=== PATIENT | male | born 1980 | race Caucasian/White ===

== ENCOUNTER 2020-07-29 10:24 | Outpatient (CLI) | payer BC, SELFPAY ==
--- NOTE | 2020-07-29 10:46 | EST_ITS ---
Patient Info Name: Luis Patel Age: 40 years : 1980 Gender: Male Ht: 70 in Wt: 217 lbs BSA: 2.23 m2 Exam Date: 07/29/2020 11:11 AM Exam Location: [facility] Stress Patient Status: Outpatient Admit Date: 07/29/2020 Staff Ordering Physician: Marianne Wells Attending Provider: Marianne Wells Exercise Technologist: Radha Hale RDCS Exercise Physician: Lino Farrell DO Exam Type: CA stress test treadmill Study Info Indications R00.2 - Palpitations A treadmill exercise stress test was performed. Summary 1. 1. Negative Hussain exercise stress test for ischemic ST changes by ECG criteria. 2. 2. Good functional capacity, achieving 12 METs of workload. 3. 3. Appropriate HR response to exercise. 4. 4. Appropriate HR recovery at 1 minute post exercise. 5. 5. No imaging with stress testing. 6. 6. Patient informed of the above results. Protocol: Hussain Stress ECG Details Stage: REST Duration (min): 4 min : 48 sec Speed (mph): 0.0 Grade (%): 0 HR (bpm): 88 SBP (mmHg): 130 DBP (mmHg): 74 METS: --- Stage: REST Duration (min): 7 min : 19 sec Speed (mph): 0.0 Grade (%): 0 HR (bpm): 92 SBP (mmHg): 130 DBP (mmHg): 74 METS: --- Stage: STAGE 1 Duration (min): 1 min : 0 sec Speed (mph): 1.7 Grade (%): 10 HR (bpm): 115 SBP (mmHg): 130 DBP (mmHg): 74 METS: --- Stage: STAGE 1 Duration (min): 2 min : 0 sec Speed (mph): 1.7 Grade (%): 10 HR (bpm): 118 SBP (mmHg): 130 DBP (mmHg): 74 METS: --- Stage: STAGE 1 Duration (min): 3 min : 0 sec Speed (mph): 1.7 Grade (%): 10 HR (bpm): 116 SBP (mmHg): 124 DBP (mmHg): 78 METS: --- Stage: STAGE 2 Duration (min): 1 min : 0 sec Speed (mph): 2.5 Grade (%): 12 HR (bpm): 125 SBP (mmHg): 124 DBP (mmHg): 78 METS: --- Stage: STAGE 2 Duration (min): 2 min : 0 sec Speed (mph): 2.5 Grade (%): 12 HR (bpm): 132 SBP (mmHg): 141 DBP (mmHg): 84 METS: --- Stage: STAGE 2 Duration (min): 3 min : 0 sec Speed (mph): 2.5 Grade (%): 12 HR (bpm): 135 SBP (mmHg): 141 DBP (mmHg): 84 METS: --- Stage: STAGE 3 Duration (min): 1 min : 0 sec Speed (mph): 3.4 Grade (%): 14 HR (bpm): 142 SBP (mmHg): 169 DBP (mmHg): 83 METS: --- Stage: STAGE 3 Duration (min): 2 min : 0 sec Speed (mph): 3.4 Grade (%): 14 HR (bpm): 147 SBP (mmHg): 169 DBP (mmHg): 83 METS: --- Stage: STAGE 3 Duration (min): 3 min : 0 sec Speed (mph): 3.4 Grade (%): 14 HR (bpm): 149 SBP (mmHg): 154 DBP (mmHg): 84 METS: --- Stage: STAGE 4 Duration (min): 1 min : 0 sec Speed (mph): 4.2 Grade (%): 16 HR (bpm): 159 SBP (mmHg): 154 DBP (mmHg): 84 METS: --- Stage: STAGE 4 Duration (min): 2 min : 0 sec Speed (mph): 4.2 Gra
== END 2020-07-29 10:25 | disposition home or self-care (01) ==
PROVIDERS: PCP Family Medicine; Visit Provider Physician Assistant Medical
DX: R00.2 Palpitations (principal); R07.9 Chest pain, unspecified
CPT/HCPCS: 93017

== ENCOUNTER → 2020-07-29 11:53 | Outpatient (CLI) | payer BC, SELFPAY ==
--- NOTE | ~2020-07-29 | XR_ITS ---
XR_CERV2-3V_CR DATE: 07/29/2020 12:08 INDICATION: Cervical radiculopathy TECHNIQUE: AP, open-mouth, lateral and swimmer views COMPARISON: None FINDINGS: There is straightening of the cervical spine. C1 and C2 are normally aligned and the odonto id process is intact. No fracture or dislocation or locked facet. No prevertebral soft tissue swelling. There is moderately severe loss of interspace height at C5-6 and more prominent loss of interspace he ight at C6-C7, with anterior and posterior spurring at each of these levels. There is uncovertebral joint spurring at C5-6 and C6-7. IMPRESSION: Straightening of the cervical spine Moderately severe degenerative disc disease at C5-6 and C6-7 Reviewed, dictated and finalized at [facility]. Reviewed, dictated and finalized at [facility].
== END ==
PROVIDERS: PCP Physician Assistant Medical; Visit Provider Physician Assistant Medical
DX: M54.12 Radiculopathy, cervical region (principal); M50.323 Other cervical disc degeneration at C6-C7 level
CPT/HCPCS: 72040

== ENCOUNTER → 2020-08-19 13:55 | Outpatient (CLI) | payer BC, SELFPAY ==
--- NOTE | ~2020-08-19 | MR_ITS ---
EXAMINATION: MR cervical spine wo con EXAM DATE: 08/19/2020 14:50 INDICATION: M54.2 Cervicalgia . Right-sided neck pain, right shoulder pain. TECHNIQUE: Multi-sequential, multiplanar MR images of the cervical spine were obtained without contra st. Axial T2, axial T2 MERGE sequence. Sagittal T1, T2, T2 fat saturation images also obtained. Th ere is no prior study for comparison. FINDINGS: The spinal cord signal intensity and intrinsic morphology is normal. Cervicomedullary junc tion is normal in appearance. There is moderate disc disease at C5-6 and 6-7, mild at C4-5 and 3-4. T he vertebral bodies are aligned in the AP dimension. There are no suspicious marrow signal abnormalit ies. Paraspinal soft tissue is unremarkable. Level by level evaluation: C2-C3: Disc does not extend beyond the endplate margin. Uncovertebral joint arthropathy: None. Facet joint arthropathy: Mild bilateral. Neural foraminal stenosis: No stenosis. Central canal stenosis: No stenosis. C3-C4: There is a mild diffuse disc bulge. Uncovertebral joint arthropathy: Moderate right, mild to moderate left. Facet joint arthropathy: Moderate right, mild to moderate left. Neural foraminal stenosis: Severe right, mild left. Central canal stenosis: Mild. C4-C5: There is a mild diffuse disc bulge. Uncovertebral joint arthropathy: Mild to moderate bilateral. Facet joint arthropathy: Moderate right, mild to moderate left. Neural foraminal stenosis: Mild bilateral. Central canal stenosis: No stenosis. C5-C6: There is a mild diffuse disc bulge. Uncovertebral joint arthropathy: Moderate bilateral. Facet joint arthropathy: Moderate bilateral. Neural foraminal stenosis: Moderate to severe bilateral. Central canal stenosis: Mild. C6-C7: There is a mild diffuse disc bulge. Uncovertebral joint arthropathy: Moderate to severe bilateral. Facet joint arthropathy: Mild bilateral. Neural foraminal stenosis: Moderate bilateral. Central canal stenosis: Mild. C7-T1: Disc does not extend beyond the endplate margin. Uncovertebral joint arthropathy: Mild left. Facet joint arthropathy: Mild to moderate bilateral. Neural foraminal stenosis: No stenosis. Central canal stenosis: No stenosis. IMPRESSION: Multilevel neural foraminal stenosis with the right C3-4 most narrowed followed by bilate ral C5-6 and 6-7 neural foramen. Reviewed, dictated and finalized at location [facility]. IMPRESSION: Multilevel neural foraminal stenosis with the right C3-4 most narro wed followed by bilateral C5-6 and 6-7 neural foramen.
== END ==
PROVIDERS: PCP Physician Assistant Medical; Visit Provider Physician Assistant Medical
DX: M54.2 Cervicalgia (principal)
CPT/HCPCS: 72141

== ENCOUNTER 2022-05-08 11:21 | Emergency (ER) | payer BC, SELFPAY ==
[2022-05-08 11:42] VITALS: BP 129/98; PULSE 92; RESP 20; TEMP 36.6; O2SAT 99
--- NOTE | 2022-05-08 11:48 | ED.GENADULT ---
HPI - General Adult General Chief complaint: Skin/Abscess/Foreign Body Stated complaint: lump/bumps/genital area Time Seen by Provider: 05/08/22 11:49 Source: patient Mode of arrival: ambulatory Limitations: no limitations History of Present Illness HPI narrative: 42-year-old male patient presents to the [facility] with complaints of a small ingrown hair that has gotten infected over the past week right along the belt line. Patient denies any fevers, body aches or chills. Patient states he has been using a little warm compress to denies it opening her having any discharge at this time. Related Data Allergies Allergy/AdvReac Type Severity Reaction Status Date / Time bee venom protein (honey bee) Allergy Intermediate hives Verified 07/16/20 15:38 Review of Systems Review of Systems: CONSTITUTIONAL: Denies fever, chills, or sweats. EYES: Denies visual changes, redness, or discharge. ENT: Denies rhinorrhea, congestion, sore throat, or otalgia. CARDIOVASCULAR: Denies chest pain, palpitations, or edema. RESPIRATORY: Denies cough or dyspnea. GASTROINTESTINAL: Denies abdominal pain, nausea, vomiting, or diarrhea. GENITOURINARY: Denies dysuria or hematuria. SKIN: Denies rash or itching. Small wound to the belt line x1 week MUSCULOSKELETAL: Denies back pain, joint pain, or myalgia. NEUROLOGIC: Denies headache, numbness, or weakness. PSYCHIATRIC: Denies anxiety or depression. [facility] Past Medical History Medical History History of irregular heartbeat Surgical History Surgical History No history of previous surgery Family History Family History Mother Lung cancer Grandparent COPD (chronic obstructive pulmonary disease) Social History Social History (Updated 07/16/20 @ 15:40 by Lynnette Cervantes) Smoking status: Current every day smoker Alcohol intake: never Substance use: never Comments At the time of my signature I agree with nursing past medical history, surgical, social, and family history. There is no relevant family history pertinent to the presenting complaint. Exam Narrative: GENERAL: Well-appearing, well-nourished, and in no acute distress. HEAD: Normocephalic, atraumatic. EYES: PERRLA and EOMI. ENT: Nares clear, no rhinorrhea or epistaxis. Mucous membranes moist. NECK: Supple. No lymphadenopathy CHEST: Clear to auscultation. No respiratory distress. HEART: Regular rate and rhythm. No murmur heard. Normal peripheral pulses. ABDOMEN: Soft, nontender, nondistended, normal active bowel sounds. EXTREMITIES: Normal range of motion. No edema. SKIN: Warm, dry, no rash. Patient has small infected ingrown hair measuring approximately 1 cm x 1 cm that is raised and is tender to the touch. Slight warmth present was little bit of surrounding erythema. No open wounds or drainage noted. NEURO: No focal deficits. Alert and oriented x3. Course Course Level of Care: Express Care Visit Vital Signs Vital signs: Vital Signs Temperature 36.6 C 05/08/22 11:42 Pulse Rate 92 05/08/22 11:42 Respiratory Rate 20 05/08/22 11:42 Blood Pressure 129/98 H 05/08/22 11:42 Pulse Oximetry 99 05/08/22 11:42 Oxygen Delivery Room Air 05/08/22 11:42 Temperature 36.6 C 05/08/22 11:42 Pulse Rate 92 05/08/22 11:42 Respiratory Rate 20 05/08/22 11:42 Blood Pressure 129/98 H 05/08/22 11:42 Pulse Oximetry 99 05/08/22 11:42 Oxygen Delivery Room Air 05/08/22 11:42 Vital signs reviewed The patient has been informed that they may have pre-hypertension or Hypertension based on a BP reading in the department. I recommend that the patient call the primary care provider listed on their discharge instructions or a physician of their choice this week to arrange follow up for further evaluation of possible pre-hypertension or Hypertension Medical
== END 2022-05-08 12:04 | disposition home or self-care (01) ==
PROVIDERS: Emergency Provider Nurse Practitioner Family; PCP Physician Assistant Medical
DX: L73.1 Pseudofolliculitis barbae (principal); L08.9 Local infection of the skin and subcutaneous tissue, unspecified; B96.89 Other specified bacterial agents as the cause of diseases classified elsewhere; F17.200 Nicotine dependence, unspecified, uncomplicated
CPT/HCPCS: 99213; G0463

== ENCOUNTER 2023-04-28 15:07 | Outpatient (CLI) | payer OTHER, SELFPAY ==
--- NOTE | ~2023-04-28 | MR_ITS ---
MRI of the cervical spine Clinical History: Radiculopathy Technique: Axial T2-weighted and gradient images, and sagittal T1-weighted, T2-weighted, and STIR guillermina ges were acquired. COMPARISON: 08/19/2020 Findings: There is no fracture or subluxation of the cervical spine. Vertebral bodies maintain normal height and alignment. There is extensive marrow edema like signal about the C5 and C6 vertebral body , presumably reactive due to underlying degenerative disc disease. At C2-C3, there is no disc bulge or herniation. No spinal canal stenosis, cord compression, or neural foraminal narrowing. At C3-C4, there is mild disc osteophyte complex. There is mild facet arthropathy. No central canal st enosis or cord compression. There is right neural foraminal narrowing. Left neural foramen probably p reserved. At C4-C5, there is minimal disc bulge. There is mild facet arthropathy bilaterally. There is no centr al canal stenosis or cord compression. There is probable mild bilateral neural foraminal narrowing, l eft worse than right. At C5-C6, there is disc osteophyte complex, resulting in mild canal stenosis and possible minimal fla ttening the ventral cord. There is bilateral neural foraminal narrowing. At C6-C7, there is mild disc osteophyte complex. No belinda canal stenosis or cord compression. There i s probable minimal bilateral neural foraminal narrowing. No abnormal signal seen in the spinal cord. Paravertebral soft tissues are unremarkable. Impression: Mild degenerative spondylosis overall, as detailed above. Reviewed, dictated and finalized at [facility]. Impression: Mild degenerative spondylosis overall, as detailed above.
== END 2023-04-28 15:08 ==
PROVIDERS: PCP Family Medicine; Visit Provider Family Medicine
DX: M47.812 Spondylosis without myelopathy or radiculopathy, cervical region (principal)
CPT/HCPCS: 72141

== ENCOUNTER 2023-05-01 10:50 | Emergency (ER) | payer OTHER, SELFPAY ==
[2023-05-01 10:59] VITALS: BP 128/79; PULSE 94; RESP 16; TEMP 37.1; O2SAT 99
[2023-05-01 11:01] VITALS: BP 128/79; PULSE 94; RESP 16; TEMP 37.1; O2SAT 99
--- NOTE | 2023-05-01 11:19 | ED.SKABFB ---
HPI - Skin/Abscess/Foreign Bdy General Chief complaint: Skin/Abscess/Foreign Body Stated complaint: back issue Time Seen by Provider: 05/01/23 11:19 Source: patient Mode of arrival: ambulatory Limitations: no limitations History of Present Illness HPI narrative: 43-year-old male presents with complaint of itchy bump to left mid back for approximately 1 month. States he showed it to his primary care physician who told him not to worry about it . Patient reports that he continues to have itching to the bump and now has soreness. No other complaints today. All systems reviewed and negative except as noted above. Related Data Allergies Allergy/AdvReac Type Severity Reaction Status Date / Time bee venom protein (honey bee) Allergy Intermediate hives Verified 05/01/23 10:58 Review of Systems Review of Systems: CONSTITUTIONAL: Denies fever, chills, or sweats. EYES: Denies visual changes, redness, or discharge. ENT: Denies rhinorrhea, congestion, sore throat, or otalgia. CARDIOVASCULAR: Denies chest pain, palpitations, or edema. RESPIRATORY: Denies cough or dyspnea. GASTROINTESTINAL: Denies abdominal pain, nausea, vomiting, or diarrhea. GENITOURINARY: Denies dysuria or hematuria. SKIN: Denies rash . Itchy bump to left mid back. MUSCULOSKELETAL: Denies back pain, joint pain, or myalgia. NEUROLOGIC: Denies headache, numbness, or weakness. PSYCHIATRIC: Denies anxiety or depression. All other systems reviewed are negative, except as documented in HPI. [facility] Past Medical History Medical History (Updated 05/01/23 @ 11:26 by Melba Merrill NP) History of irregular heartbeat HLD (hyperlipidemia) Surgical History Surgical History No history of previous surgery Family History Family History Mother Lung cancer Grandparent COPD (chronic obstructive pulmonary disease) Social History Social History Smoking status: Current every day smoker Tobacco type: cigarettes Alcohol intake: never Substance use: former Substance use type: painkillers Living arrangements: with family Occupation/Education: occupation Gender identity (if verbalized by the patient): Male Sexual Orientation (if Verbalized by the Patient): Straight or Heterosexual Spiritual care concerns: No Comments At time of signature, agree with nursing past medical, surgical, social and family history. There is no relevant family history pertinent to the presenting complaint. Exam Narrative: GENERAL: This is a well-nourished, well-developed patient, in no apparent distress. HEAD: normocephalic, atraumatic. EYES: PERRL. Sclera clear/white. Vision is grossly intact. EARS: External ears normal NOSE: External nose normal NECK: Neck supple, non-tender without lymphadenopathy, masses or thyromegaly. CARDIOVASCULAR: Regular rate and rhythm without murmurs, gallops, or rubs. RESPIRATORY: Clear to auscultation. Breath sounds equal bilaterally. No wheezes, rales, or rhonchi. SKIN: warm, Dry, intact with no suspicious lesions or rash, good texture and turgor. firm raised area to L mid back approx. 3cm diameter most likely a dermal cyst. mild erythema. tender on palpation. no fluctuance. NEURO: awake, alert, and oriented to person, place and time. There were no obvious focal neurologic abnormalities. EXTREMITIES: No joint tenderness, effusion, or edema noted. Course Course Level of Care: Express Care Visit Vital Signs Vital signs: Vital Signs Temperature 37.1 C 05/01/23 10:59 Pulse Rate 94 05/01/23 10:59 Respiratory Rate 16 05/01/23 10:59 Blood Pressure 128/79 05/01/23 10:59 Pulse Oximetry 99 05/01/23 10:59 Oxygen Delivery Room Air 05/01/23 10:59 Temperature 37.1 C 05/01/23 11:01 Pulse Rate 94 05/01/23 11:01 Respiratory Rat
== END 2023-05-01 11:30 | disposition home or self-care (01) ==
PROVIDERS: Emergency Provider Nurse Practitioner Family; PCP Family Medicine
DX: L72.0 Epidermal cyst (principal); F17.210 Nicotine dependence, cigarettes, uncomplicated; E78.5 Hyperlipidemia, unspecified
CPT/HCPCS: 99213; G0463

== ENCOUNTER 2023-06-22 12:50 | Outpatient (CLI) | payer OTHER, SELFPAY ==
--- NOTE | 2023-06-22 14:00 | NEURO_ITS ---
Impression: # Complains of numbness in hands and nocturnal paresthesia. # Early bilateral Carpal Tunnel Syndrome, right more than left # Normal needle/EMG exam. Nerve Conduction Studies Anti Sensory Summary Table Stim Site NR Peak (ms) P-T Amp (?V) Site1 Site2 Delta-P (ms) Dist (cm) Ricki (m/s) Left Median Anti Sensory (2-3nd Digit) Wrist 3.9 32.6 Wrist 2-3nd Digit 3.9 14.0 36 Wrist 4.1 11.1 Wrist 2-3nd Digit 3.9 14.0 36 Right Median Anti Sensory (2-3nd Digit) Wrist 4.1 27.9 Wrist 2-3nd Digit 4.1 14.0 34 Wrist 4.5 12.8 Wrist 2-3nd Digit 4.1 14.0 34 Left Radial Anti Sensory (Base 1st Digit) Wrist 2.1 14.5 Wrist Base 1st Digit 2.1 0.0 Right Radial Anti Sensory (Base 1st Digit) Wrist 2.7 8.9 Wrist Base 1st Digit 2.7 0.0 Left Ulnar Anti Sensory (5th Digit) Wrist 2.6 21.1 Wrist 5th Digit 2.6 14.0 54 Right Ulnar Anti Sensory (5th Digit) Wrist 2.8 28.7 Wrist 5th Digit 2.8 14.0 50 Motor Summary Table Stim Site NR Onset (ms) O-P Amp (mV) Site1 Site2 Delta-0 (ms) Dist (cm) Ricki (m/s) Left Median Motor (Abd Poll Brev) Wrist 3.8 3.9 Elbow Wrist 5.4 32.0 59 Elbow 9.2 3.5 Right Median Motor (Abd Poll Brev) Wrist 4.0 4.0 Elbow Wrist 4.8 29.0 60 Elbow 8.8 3.5 Left Ulnar Motor (Abd Dig Minimi) Wrist 2.7 6.8 A Elbow Wrist 5.3 31.0 58 A Elbow 8.0 5.3 Right Ulnar Motor (Abd Dig Minimi) Wrist 2.2 6.5 A Elbow Wrist 6.2 32.0 52 A Elbow 8.4 5.2 B Elbow Wrist 3.7 20.0 54 B Elbow 5.9 4.9 F Wave Studies NR F-Lat (ms) L-R F-Lat (ms) Left Median (Mrkrs) (Abd Poll Brev) 29.67 0.60 Right Median (Mrkrs) (Abd Poll Brev) 29.06 0.60 Left Ulnar (Mrkrs) (Abd Dig Min) 29.34 0.33 Right Ulnar (Mrkrs) (Abd Dig Min) 29.67 0.33 EMG Side Muscle Nerve Root Ins Act Fibs Amp Dur Recrt Comment Right 1stDorInt Ulnar C8-T1 Nml Nml Nml Nml Nml Right Ext Indicis Radial (Post Int) C7-8 Nml Nml Nml Nml Nml Right Ext Digitorum Radial (Post Int) C7-8 Nml Nml Nml Nml Nml Right BrachioRad Radial C5-6 Nml Nml Nml Nml Nml Right PronatorTeres Median C6-7 Nml Nml Nml Nml Nml Right Abd Poll Brev Median C8-T1 Nml Nml Nml Nml Nml Left 1stDorInt Ulnar C8-T1 Nml Nml Nml Nml Nml Left Ext Indicis Radial (Post Int) C7-8 Nml Nml Nml Nml Nml Left Ext Digitorum Radial (Post Int) C7-8 Nml Nml Nml Nml Nml Left BrachioRad Radial C5-6 Nml Nml Nml Nml Nml Left PronatorTeres Median C6-7 Nml Nml Nml Nml Nml Left Abd Poll Brev Median C8-T1 Nml Nml Nml Nml Nml Right ABD Dig Min Ulnar C8-T1 Nml Nml Nml Nml Nml Left ABD Dig Min Ulnar C8-T1 Nml Nml Nml Nml Nml MTDD
== END 2023-06-22 12:51 | disposition home or self-care (01) ==
LOC: ANHNEURO 12:52
PROVIDERS: PCP Family Medicine; Visit Provider Family Medicine
DX: G56.03 Carpal tunnel syndrome, bilateral upper limbs (principal)
CPT/HCPCS: 95886; 95911

== ENCOUNTER 2023-06-24 01:38 | Day surgery (SDC) | payer OTHER, SELFPAY ==
[2023-06-13 13:32] VITALS: BMI 32.6
--- NOTE | 2023-06-23 15:18 | PM.HPGS ---
History of Present Illness History of Present Illness Consent: Risks, benefits, and alternatives have been discussed and questions answered. Patient agrees to proceed with procedure. Chief complaint: neoplasm screening Narrative: Luis Patel is a 43 year old male Referred for colon cancer screening. Review of Systems Review of Systems: All systems reviewed & are unremarkable except as noted in HPI and below PMFSH Past Medical History Medical History History of irregular heartbeat HLD (hyperlipidemia) Surgical History Surgical History No history of previous surgery Family History Family History Mother Lung cancer Grandparent COPD (chronic obstructive pulmonary disease) Social History Social History Smoking packs per day: 1.5 Smoking cigarettes per day: 30.0 Years smoked: 7 Smoking pack-years: 10.50 Smoking status: Current every day smoker Tobacco type: cigarettes Alcohol intake: current Alcohol use details: rare use Substance use: former Substance use type: painkillers Living arrangements: with family Occupation/Education: occupation Gender identity (if verbalized by the patient): Male Sexual Orientation (if Verbalized by the Patient): Straight or Heterosexual Spiritual care concerns: No Meds Home Medications and Allergies Home Medications Medication Instructions Recorded Confirmed Type meloxicam 15 mg tablet 15 mg PO DAILY #30 tabs 06/06/23 06/13/23 Rx Allergies Allergy/AdvReac Type Severity Reaction Status Date / Time bee venom protein (honey bee) Allergy Intermediate hives Verified 06/24/23 06:46 Exam Const: General: alert Orientation/consciousness: patient oriented x3 Resp: Auscultation: clear to auscultation bilaterally Cardio: Rhythm: regular rhythm GI: GI Palp: Yes Soft to palpation and No Tenderness to palpation present (GI) Neuro: General: patient oriented x3 Assessment and Plan Assessment and plan (1) Colon cancer screening: Code(s): Z12.11 - Encounter for screening for malignant neoplasm of colon Status: Acute Assessment and Plan: Colonoscopy with possible biopsy or polypectomy or cautery or injection of substances.
[2023-06-24 06:48] VITALS: BP 124/83; PULSE 95; RESP 20; TEMP 36.2; O2SAT 99
[2023-06-24] MEDS: LACTATED RINGERS 1,000 ML 150 ML IV CONT (06:59)
--- NOTE | 2023-06-24 07:02 | WPDANESEPPF ---
Anes - Initial Pre Proc Eval Procedure: Operation Date: 06/24/23 08:00 Proposed Procedures p Screening Colonoscopy - Jung Cohn MD Date/Time: 06/24/23 07:02 Surgeon: Jung Cohn MD Pre Op Diagnosis: neoplasm screening Patient Data Age: 43 Gender: M Height: 1.8 m Weight: 101.7 kg Last Vital Signs Temp 36.2 C L 06/24/23 06:48 Pulse 95 06/24/23 06:48 Resp 20 06/24/23 06:48 BP 124/83 06/24/23 06:48 Pulse Ox 99 06/24/23 06:48 O2 Del Method Room Air 06/24/23 06:48 Allergies Allergy/AdvReac Type Severity Reaction Status Date / Time bee venom protein (honey bee) Allergy Intermediate hives Verified 06/24/23 06:46 Home Medications Medication Instructions Recorded Confirmed Type meloxicam 15 mg tablet 15 mg PO DAILY #30 tabs 06/06/23 06/13/23 Rx Patient hx anesthesia problems: none Family hx anesthesia problems: none Results Review: All pre-operative results and documents have been reviewed as part of the pre-operative evaluation. [facility] Past Medical History Medical History (Updated 06/24/23 @ 07:02 by Nicola Nunes MD) History of irregular heartbeat HLD (hyperlipidemia) SVT (supraventricular tachycardia) cardioverted in ER 3 days ago Surgical History Surgical History No history of previous surgery Family History Family History Mother Lung cancer Grandparent COPD (chronic obstructive pulmonary disease) Social History Social History Smoking packs per day: 1.5 Smoking cigarettes per day: 30.0 Years smoked: 7 Smoking pack-years: 10.50 Smoking status: Current every day smoker Tobacco type: cigarettes Alcohol intake: current Alcohol use details: rare use Substance use: former Substance use type: painkillers Living arrangements: with family Occupation/Education: occupation Gender identity (if verbalized by the patient): Male Sexual Orientation (if Verbalized by the Patient): Straight or Heterosexual Spiritual care concerns: No Anes - Eval Final PreProcedure Day of Procedure 06/24/23 07:02 Patient weight: obese Heart: regular rate and rhythm Lungs: clear to auscultation Airway: Mallampati scale class II Neurological: alert and oriented Last oral intake: >/= 8 hours ASA classification: III Emergent: no Anesthetic plan: proceed Anesthesia type and monitoring: general GIVS and standard monitoring Results Review: All pre-operative results and documents have been reviewed as part of the pre-operative evaluation. Informed Consent: The patient's anesthetic plan and its attendant risks including cardiac arrhythmia and its consequences and benefits were discussed with the patient/family/POA. Questions were solicited and answers provided to the satisfaction of the patient/family/POA.
[2023-06-24 08:18] VITALS: BP 91/63; PULSE 88; RESP 17; O2SAT 95
[2023-06-24 08:28] VITALS: BP 106/64; PULSE 82; RESP 17; O2SAT 94
[2023-06-24 08:38] VITALS: BP 109/62; PULSE 84; RESP 25; O2SAT 97
== END 2023-06-24 08:41 | disposition home or self-care (01) ==
PROVIDERS: PCP Family Medicine; Visit Provider Internal Medicine Gastroenterology
PROC: 0DJD8ZZ Inspection of Lower Intestinal Tract, Via Natural or Artificial Opening Endoscopic (ICD-10-PCS; CPT 45378; principal; 2023-06-24 08:00)
DX: Z12.11 Encounter for screening for malignant neoplasm of colon (principal); K57.30 Diverticulosis of large intestine without perforation or abscess without bleeding; E78.5 Hyperlipidemia, unspecified; F17.210 Nicotine dependence, cigarettes, uncomplicated; E66.9 Obesity, unspecified; Z68.31 Body mass index [BMI] 31.0-31.9, adult
CPT/HCPCS: 45378; J2704; J7120